=== PATIENT | female | born 1945 | race African-American/Black ===

== ENCOUNTER 2016-08-25 19:50 | Observation (INO) | payer MEDICARE, MEDICAID ==
[~2016-08-25] VITALS: Ht 165.1 cm; Wt 90.7 kg
[~2016-08-25 19:50] MED LIST: ACET-2178 PO; ASPI-1159 PO; ATOR80TA PO; CLON0.1T PO; DILT240C92 PO; DIVA500T PO; FAMO40TA35 PO; GABA-529 PO; HYDR25TA PO; LACT10SO6 PO; MILK OF MAGNESIUM PO; OXYB5TAB11 PO; PHEN100C4 PO; TRAM50TA3 PO; senna PO
[2016-08-25] MEDS ORDERED: SODIUM CHLORIDE 0.9% 1000ML BAG (SEPSIS BOLUS) IV ONE (21:30)
[2016-08-25 22:02] LABS: BASOPHILS % 0.7 % (0.0-2.0); EOSINOPHILS % 0.4 % (0.0-5.0); HEMATOCRIT. 30.8 % (36.0-48.0); HEMOGLOBIN. 10.2 g/dL (12.0-16.0); LYMPHOCYTES % 8.4 % (20.0-50.0); MEAN CORPUSCULAR VOLUME 87.2 fL (81.0-99.0); MEAN PLATELET VOLUME 7.8 fl (7.4-10.4); MONOCYTES % 7.7 % (2.0-8.0); NEUTROPHILS % 82.8 % (40.0-76.0); PLATELET 239 x1000/uL (130-400); RED BLOOD CELL COUNT 3.54 mill/uL (4.2-5.4); RED CELL DISTRIBUTION WIDTH 15.1 % (11.6-14.6)
[2016-08-25 22:05] LABS: PROTHROMBIN TIME 10.5 sec
[2016-08-25 22:16] LABS: CARBON DIOXIDE 30 mEq/L (21-32); CHLORIDE 99 mEq/L (98-107)
[2016-08-25 22:17] LABS: TROPONIN I < 0.02 ng/mL (0.00-0.04)
[2016-08-25 23:10] LABS: CLARITY URINE CLEAR (CLEAR); COLOR URINE DARK YELLOW (YELLOW); GLUCOSE URINE NEGATIVE (NEGATIVE); KETONES URINE 1+ (NEGATIVE); LEUKOCYTE ESTERASE URINE 1+ (NEGATIVE); NITRITE URINE NEGATIVE (NEGATIVE); OCCULT BLOOD URINE NEGATIVE (NEGATIVE); PROTEIN URINE NEGATIVE (NEGATIVE)
[2016-08-25] MEDS ORDERED: CEFTRIAXONE 1 G PREMIX 50 ML IV ONE (23:30)
[2016-08-26 04:00] VITALS: BP 140/76
[2016-08-26] MEDS ORDERED: CLONIDINE 0.1MG TABLET PO PRN (04:45)
[2016-08-26] MEDS ORDERED: ACETAMINOPHEN 325MG TABLET PO PRN (04:45)
[2016-08-26] MEDS ORDERED: TRAMADOL 50MG TABLET PO PRN (05:15)
[2016-08-26] MEDS ORDERED: ALBUTEROL (0.5%) 2.5MG/0.5ML NEB HHN ONE (05:15)
[2016-08-26] MEDS ORDERED: MAGNESIUM HYDROXIDE 400MG/5ML 30ML UDC PO PRN (05:15)
[2016-08-26] MEDS ORDERED: HYDROCODONE/ACETAMINOPHEN 5/325MG TABLET PO PRN (05:15)
[2016-08-26 05:19] VITALS: BP 140/76
[2016-08-26] MEDS: CEFTRIAXONE 1 G PREMIX 50 ML IV SCH (06:35)
[2016-08-26] MEDS: FAMOTIDINE 20MG TABLET PO SCH ×2 (06:36→17:56)
[2016-08-26] MEDS: PHENYTOIN SODIUM EXTENDED 100MG CAPSULE PO SCH ×2 (06:36→20:30)
[2016-08-26 08:00] VITALS: BP 117/64
[2016-08-26] MEDS ORDERED: PHENYTOIN SODIUM EXTENDED 100MG CAPSULE PO SCH (09:00)
[2016-08-26] MEDS: CLOPIDOGREL 75MG TABLET PO SCH (09:18)
[2016-08-26] MEDS: DIVALPROEX SODIUM 250MG DR TABLET PO SCH ×2 (09:18→17:56)
[2016-08-26] MEDS: LEVETIRACETAM 500MG/5ML CUP PO SCH ×2 (09:19→20:29)
[2016-08-26] MEDS: DILTIAZEM HCL 240MG ER (24HR) PO SCH ×2 (09:19→09:34)
[2016-08-26] MEDS: ASPIRIN 81MG EC TABLET PO SCH (09:19)
[2016-08-26] MEDS: GABAPENTIN 100MG CAPSULE PO SCH ×3 (09:19→17:56)
[2016-08-26] MEDS: ENOXAPARIN 40MG/0.4ML SYR SUBCUT SCH (09:20)
[2016-08-26] MEDS: LACTULOSE 20G/30ML UDC PO SCH ×2 (09:20→17:56)
[2016-08-26] MEDS: METOPROLOL TARTRATE 25MG TABLET PO SCH ×2 (09:34→20:31)
[2016-08-26] MEDS: HYDROCHLOROTHIAZIDE 25MG TABLET PO SCH (09:34)
[2016-08-26] MEDS: FLUOXETINE HCL 20MG CAPSULE PO SCH (09:35)
[2016-08-26 12:00] VITALS: BP 138/62
[2016-08-26] MEDS: OXYBUTYNIN CHLORIDE 5MG TABLET PO SCH (15:57)
[2016-08-26 16:00] VITALS: BP 104/68
[2016-08-26 20:00] VITALS: BP 117/60
[2016-08-26] MEDS: BUSPIRONE HCL 10MG TABLET PO SCH (20:31)
[2016-08-26] MEDS: ATORVASTATIN CALCIUM 40MG TABLET PO SCH (20:31)
[2016-08-26 22:12] LABS: VITAMIN B12 SERUM 484 pg/mL (211-911)
[2016-08-27] VITALS (8 sets, daily range): BP systolic 108–151; BP diastolic 61–87
[2016-08-27] MEDS: CEFTRIAXONE 1 G PREMIX 50 ML IV SCH (06:01)
[2016-08-27] MEDS: PHENYTOIN SODIUM EXTENDED 100MG CAPSULE PO SCH ×2 (06:01→20:25)
[2016-08-27] MEDS: FAMOTIDINE 20MG TABLET PO SCH ×2 (06:01→18:12)
[2016-08-27] MEDS: DIVALPROEX SODIUM 250MG DR TABLET PO SCH ×2 (08:47→18:11)
[2016-08-27] MEDS: FLUOXETINE HCL 20MG CAPSULE PO SCH (08:47)
[2016-08-27] MEDS: CLOPIDOGREL 75MG TABLET PO SCH (08:48)
[2016-08-27] MEDS: ASPIRIN 81MG EC TABLET PO SCH (08:48)
[2016-08-27] MEDS: METOPROLOL TARTRATE 25MG TABLET PO SCH ×2 (08:48→20:24)
[2016-08-27] MEDS: OXYBUTYNIN CHLORIDE 5MG TABLET PO SCH (08:48)
[2016-08-27] MEDS: HYDROCHLOROTHIAZIDE 25MG TABLET PO SCH (08:48)
[2016-08-27] MEDS: GABAPENTIN 100MG CAPSULE PO SCH ×3 (08:48→18:12)
[2016-08-27] MEDS: LACTULOSE 20G/30ML UDC PO SCH ×2 (08:48→17:00)
[2016-08-27] MEDS: ENOXAPARIN 40MG/0.4ML SYR SUBCUT SCH (08:49)
[2016-08-27] MEDS: LEVETIRACETAM 500MG/5ML CUP PO SCH ×2 (08:49→20:24)
[2016-08-27 11:15] LABS: BASOPHILS % 0.4 % (0.0-2.0); EOSINOPHILS % 1.9 % (0.0-5.0); HEMOGLOBIN. 10.3 g/dL (12.0-16.0); LYMPHOCYTES % 19.4 % (20.0-50.0); MEAN CORPUSCULAR HEMOGLOBIN 29.8 pg (28.0-32.0); MEAN CORPUSCULAR VOLUME 86.9 fL (81.0-99.0); MEAN PLATELET VOLUME 7.8 fl (7.4-10.4); MONOCYTES % 11.2 % (2.0-8.0); NEUTROPHILS % 67.1 % (40.0-76.0); PLATELET 229 x1000/uL (130-400); RED BLOOD CELL COUNT 3.45 mill/uL (4.2-5.4); RED CELL DISTRIBUTION WIDTH 15.1 % (11.6-14.6)
[2016-08-27 11:18] LABS: CARBON DIOXIDE 30 mEq/L (21-32); CHLORIDE 103 mEq/L (98-107)
[2016-08-27] MEDS ORDERED: CEPHALEXIN 500MG CAPSULE PO SCH (18:00)
[2016-08-27] MEDS: ATORVASTATIN CALCIUM 40MG TABLET PO SCH (20:24)
[2016-08-27] MEDS: BUSPIRONE HCL 10MG TABLET PO SCH (20:24)
== END 2016-08-27 23:12 | disposition home or self-care (01) ==
LOC: ER 19:51 → 5WST 08-26 00:22 → UNDOADMOB 08-26 00:22 → INTOOBSV 08-26 00:22 → 5WST 08-26 00:22 → EDBEDREQ 08-26 00:25 → EDBEDREQSVC 08-26 00:25 → EDBEDREQTM 08-26 00:25 → ENRESERV 08-26 02:05 → ER 08-26 03:30 → UNDODISOB 08-27 22:12 → ER 08-27 22:13
PROVIDERS: ADMIT Internal Medicine; ATTEND Internal Medicine
DX: M25.551 Pain in right hip (principal); N39.0 Urinary tract infection, site not specified; F20.9 Schizophrenia, unspecified; G40.909 Epilepsy, unspecified, not intractable, without status epilepticus; I10 Essential (primary) hypertension; F03.90 Unspecified dementia, unspecified severity, without behavioral disturbance, psychotic disturbance, mood disturbance, and anxiety; R62.7 Adult failure to thrive; M47.9 Spondylosis, unspecified; F32.9 Major depressive disorder, single episode, unspecified; R56.9 Unspecified convulsions; K59.00 Constipation, unspecified; Z86.73 Personal history of transient ischemic attack (TIA), and cerebral infarction without residual deficits; Z93.3 Colostomy status; Z68.33 Body mass index [BMI] 33.0-33.9, adult; Z96.659 Presence of unspecified artificial knee joint
CPT/HCPCS: 36415; 51702; 70450; 71010; 72170; 72192; 73700; 80048; 80053; 80165; 81001; 82607; 83605; 83690; 84443; 84484; 85025; 85610; 87040; 87077; 87086; 93005; 95819; 96361; 96365; 96372; 96375; 96376; 97163; 99285; G0378; J0696; J1650; J7030; A4315

== ENCOUNTER 2017-01-26 17:59 | Emergency (ER) | payer MEDICARE, MEDICAID ==
[~2017-01-26] VITALS: Ht 165.1 cm; Wt 80.0 kg
[~2017-01-26 17:59] MED LIST changes: -FAMO40TA35 PO; +FAMO40TA70 PO
[2017-01-26] MEDS ORDERED: SODIUM CHLORIDE 0.9% 500 ML IV ONE (19:05)
[2017-01-26 20:42] LABS: BASOPHILS % 0.9 % (0.0-2.0); HEMATOCRIT. 36.2 % (36.0-48.0); HEMOGLOBIN. 11.7 g/dL (12.0-16.0); LYMPHOCYTES % 32.2 % (20.0-50.0); MEAN CORPUSCULAR HEMOGLOBIN 28.4 pg (28.0-32.0); MEAN CORPUSCULAR VOLUME 87.6 fL (81.0-99.0); MEAN PLATELET VOLUME 7.7 fl (7.4-10.4); MONOCYTES % 12.7 % (2.0-8.0); NEUTROPHILS % 51.2 % (40.0-76.0); PLATELET 157 x1000/uL (130-400); RED BLOOD CELL COUNT 4.14 mill/uL (4.2-5.4); RED CELL DISTRIBUTION WIDTH 18.8 % (11.6-14.6)
[2017-01-26 20:43] LABS: CHLORIDE 99 mEq/L (98-107)
[2017-01-26 20:45] LABS: PROTHROMBIN TIME 10.2 sec (9.4-11.6)
[2017-01-26 20:49] LABS: AMMONIA 39 uMol/L (<32)
[2017-01-26 20:50] LABS: CARBON DIOXIDE 34 mEq/L (21-32)
[2017-01-26 20:51] LABS: CREATINE KINASE 283 IU/L (26-192)
[2017-01-26 20:55] LABS: TROPONIN I < 0.02 ng/mL (0.00-0.04)
[2017-01-27 00:24] VITALS: BP 134/65
== END 2017-01-27 00:27 ==
LOC: ER 17:59
DX: R41.82 Altered mental status, unspecified (principal); R53.1 Weakness; F03.90 Unspecified dementia, unspecified severity, without behavioral disturbance, psychotic disturbance, mood disturbance, and anxiety; F20.9 Schizophrenia, unspecified; F32.9 Major depressive disorder, single episode, unspecified; I10 Essential (primary) hypertension; R56.9 Unspecified convulsions; Z79.82 Long term (current) use of aspirin; Z86.73 Personal history of transient ischemic attack (TIA), and cerebral infarction without residual deficits; Z93.3 Colostomy status; Z87.440 Personal history of urinary (tract) infections; Z88.8 Allergy status to other drugs, medicaments and biological substances
CPT/HCPCS: 36415; 70450; 71010; 80053; 80165; 82140; 82550; 83605; 83880; 84443; 84484; 85025; 85610; 87040; 93005; 96360; 96361; 99285; J7030; J7040

== ENCOUNTER 2017-06-20 20:05 | Inpatient (IN) | payer MEDICARE, MEDICAID ==
[~2017-06-20] VITALS: Ht 160 cm; Wt 113.9 kg
[2017-06-20] MEDS ORDERED: MORPHINE SULFATE 4 MG/ML CPJ (NOT FOR IM USE) IV ONE (20:45)
[2017-06-20] MEDS ORDERED: FUROSEMIDE 100MG/10ML VIAL IVP ONE (20:45)
[2017-06-20 21:30] LABS: CHLORIDE 101 mEq/L (98-107)
[2017-06-20 21:33] LABS: BASOPHILS % 0.7 % (0.0-2.0); EOSINOPHILS % 2.3 % (0.0-5.0); HEMATOCRIT. 39.5 % (36.0-48.0); HEMOGLOBIN. 13.3 g/dL (12.0-16.0); LYMPHOCYTES % 47.7 % (20.0-50.0); MEAN CORPUSCULAR HEMOGLOBIN 30.8 pg (28.0-32.0); MEAN CORPUSCULAR VOLUME 91.4 fL (81.0-99.0); MEAN PLATELET VOLUME 7.9 fl (7.4-10.4); MONOCYTES % 9.1 % (2.0-8.0); NEUTROPHILS % 40.2 % (40.0-76.0); PLATELET 172 x1000/uL (130-400); RED BLOOD CELL COUNT 4.32 mill/uL (4.2-5.4); RED CELL DISTRIBUTION WIDTH 14.9 % (11.6-14.6)
[2017-06-21 06:15] VITALS: BP 131/67
[2017-06-21 07:30] VITALS: BP 178/74
[2017-06-21 08:00] VITALS: BP 178/74
[2017-06-21] MEDS ORDERED: CLONIDINE 0.1MG TABLET PO SCH (09:30)
[2017-06-21] MEDS ORDERED: ONDANSETRON HCL 4MG/2ML VIAL IV PRN (11:30)
[2017-06-21] MEDS ORDERED: HYDROCODONE/ACETAMINOPHEN 5/325MG TABLET PO PRN (11:30)
[2017-06-21] MEDS ORDERED: CLONIDINE 0.1MG TABLET PO PRN (11:45)
[2017-06-21] MEDS ORDERED: LACTULOSE 20G/30ML UDC PO PRN (11:45)
[2017-06-21 12:00] VITALS: BP 157/46
[2017-06-21 13:20] LABS: HEMATOCRIT 38.6 % (36.0-48.0); HEMOGLOBIN 13.2 g/dL (12.0-16.0); MEAN CORPUSCULAR HEMOGLOBIN 31.1 pg (28.0-32.0); MEAN CORPUSCULAR VOLUME 91.3 fL (81.0-99.0); PLATELET 164 x1000/uL (130-400); RED BLOOD CELL COUNT 4.23 mill/uL (4.2-5.4); RED CELL DISTRIBUTION WIDTH 14.9 % (11.6-14.6)
[2017-06-21] MEDS: OXYBUTYNIN CHLORIDE 5MG TABLET PO SCH (13:23)
[2017-06-21] MEDS: GABAPENTIN 100MG CAPSULE PO SCH ×2 (13:24→17:03)
[2017-06-21 13:27] LABS: CHLORIDE 103 mEq/L (98-107)
[2017-06-21] MEDS: DILTIAZEM HCL 240MG ER (24HR) PO SCH (13:29)
[2017-06-21] MEDS: HYDROCHLOROTHIAZIDE 25MG TABLET PO SCH (13:29)
[2017-06-21 13:36] LABS: CREATINE KINASE 132 IU/L (26-192)
[2017-06-21 13:38] LABS: CREATINE KINASE MB FRACTION 1.9 ng/mL (0.5-3.6)
[2017-06-21] MEDS: FUROSEMIDE 40MG/4ML VIAL IVP SCH (15:38)
[2017-06-21] MEDS: ENOXAPARIN 30MG/0.3ML SYR SUBCUT SCH ×2 (15:44→22:39)
[2017-06-21 16:00] VITALS: BP 134/86
[2017-06-21] MEDS ORDERED: PHENYTOIN SODIUM EXTENDED 100MG CAPSULE PO SCH (17:00)
[2017-06-21] MEDS: DIVALPROEX SODIUM 250MG DR TABLET PO SCH (17:03)
[2017-06-21] MEDS: HALOPERIDOL 1MG TABLET PO PRN (17:03)
[2017-06-21] MEDS: FAMOTIDINE 20MG TABLET PO SCH (17:04)
[2017-06-21 20:00] VITALS: BP 99/71
[2017-06-21] MEDS ORDERED: MEDICATION NOT ON FORMULARY EA (Atorvastatin Calcium (Lipitor) 80 MG) PO SCH (21:00)
[2017-06-21] MEDS: GABAPENTIN 300MG CAPSULE PO SCH (22:38)
[2017-06-21] MEDS: PHENYTOIN SODIUM EXTENDED 100MG CAPSULE PO SCH (22:38)
[2017-06-21] MEDS: ATORVASTATIN CALCIUM 40MG TABLET PO SCH (22:38)
[2017-06-22] VITALS: BP 121/61
[2017-06-22 04:00] VITALS: BP 127/68
[2017-06-22] MEDS: HALOPERIDOL 1MG TABLET PO PRN (05:41)
[2017-06-22] MEDS: FAMOTIDINE 20MG TABLET PO SCH ×2 (06:57→18:04)
[2017-06-22 07:30] LABS: HEMATOCRIT 38.1 % (36.0-48.0); HEMOGLOBIN 12.7 g/dL (12.0-16.0); MEAN CORPUSCULAR HEMOGLOBIN 30.3 pg (28.0-32.0); MEAN CORPUSCULAR VOLUME 91.4 fL (81.0-99.0); PLATELET 168 x1000/uL (130-400); RED BLOOD CELL COUNT 4.17 mill/uL (4.2-5.4)
[2017-06-22 08:00] VITALS: BP 151/64
[2017-06-22 08:14] LABS: CHLORIDE 103 mEq/L (98-107)
[2017-06-22 08:30] LABS: LDL CHOLESTEROL 174 mg/dL (5-100)
[2017-06-22 08:31] LABS: HDL CHOLESTEROL 57 mg/dL (40-59)
[2017-06-22] MEDS: PHENYTOIN SODIUM EXTENDED 100MG CAPSULE PO SCH ×2 (10:18→18:04)
[2017-06-22] MEDS: DIVALPROEX SODIUM 250MG DR TABLET PO SCH ×2 (10:18→18:04)
[2017-06-22] MEDS: ASPIRIN 81MG EC TABLET PO SCH (10:18)
[2017-06-22] MEDS: GABAPENTIN 300MG CAPSULE PO SCH ×3 (10:18→18:05)
[2017-06-22] MEDS: DILTIAZEM HCL 240MG ER (24HR) PO SCH (10:19)
[2017-06-22] MEDS: OXYBUTYNIN CHLORIDE 5MG TABLET PO SCH (10:20)
[2017-06-22] MEDS: HYDROCHLOROTHIAZIDE 25MG TABLET PO SCH (10:20)
[2017-06-22] MEDS: ENOXAPARIN 30MG/0.3ML SYR SUBCUT SCH ×2 (10:21→21:05)
[2017-06-22 12:00] VITALS: BP 126/51
[2017-06-22] MEDS: FUROSEMIDE 40MG/4ML VIAL IVP SCH (15:00)
[2017-06-22] MEDS ORDERED: PHEN200C5 MT (15:48)
[2017-06-22] MEDS ORDERED: HALO2TAB MT (15:51)
[2017-06-22] MEDS ORDERED: GABA-531 MT (15:51)
[2017-06-22 16:00] VITALS: BP 149/73
[2017-06-22 20:00] VITALS: BP 118/66
[2017-06-22] MEDS ORDERED: HALOPERIDOL 1MG TABLET PO SCH (21:00)
[2017-06-22] MEDS: ATORVASTATIN CALCIUM 40MG TABLET PO SCH (21:03)
[2017-06-22] MEDS: HALOPERIDOL 1MG TABLET PO SCH (21:04)
[2017-06-23] VITALS: BP 112/56
[2017-06-23 04:00] VITALS: BP 133/73
[2017-06-23] MEDS: FAMOTIDINE 20MG TABLET PO SCH ×2 (06:52→18:45)
[2017-06-23 08:00] VITALS: BP 123/67
[2017-06-23] MEDS: ASPIRIN 81MG EC TABLET PO SCH (09:28)
[2017-06-23] MEDS: PHENYTOIN SODIUM EXTENDED 100MG CAPSULE PO SCH ×2 (09:28→18:45)
[2017-06-23] MEDS: HYDROCHLOROTHIAZIDE 25MG TABLET PO SCH (09:28)
[2017-06-23] MEDS: HALOPERIDOL 1MG TABLET PO SCH ×2 (09:28→20:32)
[2017-06-23] MEDS: GABAPENTIN 300MG CAPSULE PO SCH ×3 (09:29→18:45)
[2017-06-23] MEDS: FUROSEMIDE 40MG/4ML VIAL IVP SCH (09:29)
[2017-06-23] MEDS: DIVALPROEX SODIUM 250MG DR TABLET PO SCH ×2 (09:29→18:44)
[2017-06-23] MEDS: OXYBUTYNIN CHLORIDE 5MG TABLET PO SCH (09:29)
[2017-06-23] MEDS: DILTIAZEM HCL 240MG ER (24HR) PO SCH (09:29)
[2017-06-23] MEDS: ENOXAPARIN 30MG/0.3ML SYR SUBCUT SCH ×2 (09:30→20:33)
[2017-06-23 11:17] LABS: CLARITY URINE CLEAR (CLEAR); COLOR URINE YELLOW (YELLOW); KETONES URINE NEGATIVE (NEGATIVE); LEUKOCYTE ESTERASE URINE NEGATIVE (NEGATIVE); NITRITE URINE NEGATIVE (NEGATIVE); OCCULT BLOOD URINE NEGATIVE (NEGATIVE); PROTEIN URINE NEGATIVE (NEGATIVE); SPECIFIC GRAVITY URINE 1.015 (1.005-1.030); UROBILINOGEN URINE 0.2 E.U./dL (0.2-1.0)
[2017-06-23 12:00] VITALS: BP 143/88
[2017-06-23 16:00] VITALS: BP 155/77
[2017-06-23 17:09] LABS: HEMATOCRIT 39.7 % (36.0-48.0); HEMOGLOBIN 13.4 g/dL (12.0-16.0); MEAN CORPUSCULAR HEMOGLOBIN 30.7 pg (28.0-32.0); MEAN CORPUSCULAR VOLUME 91.2 fL (81.0-99.0); PLATELET 194 x1000/uL (130-400); RED BLOOD CELL COUNT 4.36 mill/uL (4.2-5.4); RED CELL DISTRIBUTION WIDTH 14.7 % (11.6-14.6)
[2017-06-23 17:17] LABS: CHLORIDE 99 mEq/L (98-107)
[2017-06-23 20:00] VITALS: BP 121/72
[2017-06-23] MEDS: ATORVASTATIN CALCIUM 40MG TABLET PO SCH (20:32)
[2017-06-24] VITALS: BP 130/62
[2017-06-24 04:00] VITALS: BP 123/59
[2017-06-24 06:15] LABS: PROTHROMBIN TIME 10.7 sec (9.4-11.6)
[2017-06-24 06:17] LABS: HEMATOCRIT 39.2 % (36.0-48.0); HEMOGLOBIN 13.2 g/dL (12.0-16.0); MEAN CORPUSCULAR HEMOGLOBIN 30.8 pg (28.0-32.0); MEAN CORPUSCULAR VOLUME 91.3 fL (81.0-99.0); PLATELET 175 x1000/uL (130-400); RED BLOOD CELL COUNT 4.29 mill/uL (4.2-5.4)
[2017-06-24] MEDS: FAMOTIDINE 20MG TABLET PO SCH ×2 (06:20→18:04)
[2017-06-24 07:19] LABS: CHLORIDE 101 mEq/L (98-107)
[2017-06-24 08:00] VITALS: BP 152/69
[2017-06-24] MEDS: DILTIAZEM HCL 240MG ER (24HR) PO SCH (08:58)
[2017-06-24] MEDS: DIVALPROEX SODIUM 250MG DR TABLET PO SCH ×2 (08:59→18:04)
[2017-06-24] MEDS: PHENYTOIN SODIUM EXTENDED 100MG CAPSULE PO SCH ×2 (08:59→18:04)
[2017-06-24] MEDS: FUROSEMIDE 40MG/4ML VIAL IVP SCH (09:00)
[2017-06-24] MEDS: GABAPENTIN 300MG CAPSULE PO SCH ×3 (09:00→18:04)
[2017-06-24] MEDS: ASPIRIN 81MG EC TABLET PO SCH (09:01)
[2017-06-24] MEDS: HYDROCHLOROTHIAZIDE 25MG TABLET PO SCH (09:01)
[2017-06-24] MEDS: HALOPERIDOL 1MG TABLET PO SCH ×2 (09:01→20:00)
[2017-06-24] MEDS: OXYBUTYNIN CHLORIDE 5MG TABLET PO SCH (09:02)
[2017-06-24] MEDS: ENOXAPARIN 30MG/0.3ML SYR SUBCUT SCH ×2 (09:04→20:02)
[2017-06-24 12:00] VITALS: BP 137/70
[2017-06-24] MEDS ORDERED: HALOPERIDOL 2MG TABLET PO NR (15:30)
[2017-06-24 16:00] VITALS: BP 133/71
[2017-06-24 20:00] VITALS: BP 121/67
[2017-06-24] MEDS: ATORVASTATIN CALCIUM 40MG TABLET PO SCH (20:00)
[2017-06-25] VITALS: BP 113/77
[2017-06-25 04:00] VITALS: BP 119/67
[2017-06-25 06:14] LABS: CHLORIDE 98 mEq/L (98-107)
[2017-06-25] MEDS: FAMOTIDINE 20MG TABLET PO SCH ×2 (06:32→16:37)
[2017-06-25 08:00] VITALS: BP 126/55
[2017-06-25] MEDS: PHENYTOIN SODIUM EXTENDED 100MG CAPSULE PO SCH ×2 (09:00→16:37)
[2017-06-25] MEDS: OXYBUTYNIN CHLORIDE 5MG TABLET PO SCH (09:41)
[2017-06-25] MEDS: HALOPERIDOL 1MG TABLET PO SCH ×2 (09:41→22:21)
[2017-06-25] MEDS: ENOXAPARIN 30MG/0.3ML SYR SUBCUT SCH ×2 (09:41→22:21)
[2017-06-25] MEDS: DIVALPROEX SODIUM 250MG DR TABLET PO SCH ×2 (09:41→16:37)
[2017-06-25] MEDS: HYDROCHLOROTHIAZIDE 25MG TABLET PO SCH (09:42)
[2017-06-25] MEDS: ASPIRIN 81MG EC TABLET PO SCH (09:43)
[2017-06-25] MEDS: GABAPENTIN 300MG CAPSULE PO SCH ×3 (09:43→16:37)
[2017-06-25] MEDS: FUROSEMIDE 40MG/4ML VIAL IVP SCH (09:43)
[2017-06-25] MEDS: DILTIAZEM HCL 240MG ER (24HR) PO SCH (09:47)
[2017-06-25 12:00] VITALS: BP 123/70
[2017-06-25 16:00] VITALS: BP 115/60
[2017-06-25] MEDS: ATORVASTATIN CALCIUM 40MG TABLET PO SCH (22:21)
[2017-06-26 04:00] VITALS: BP 100/69
[2017-06-26] MEDS: FAMOTIDINE 20MG TABLET PO SCH ×2 (07:36→16:45)
[2017-06-26 08:00] VITALS: BP 141/69
[2017-06-26] MEDS: ENOXAPARIN 30MG/0.3ML SYR SUBCUT SCH ×2 (09:30→22:41)
[2017-06-26] MEDS: FUROSEMIDE 40MG/4ML VIAL IVP SCH (09:30)
[2017-06-26] MEDS: OXYBUTYNIN CHLORIDE 5MG TABLET PO SCH (09:31)
[2017-06-26] MEDS: ASPIRIN 81MG EC TABLET PO SCH (09:31)
[2017-06-26] MEDS: HALOPERIDOL 1MG TABLET PO SCH ×2 (09:31→22:41)
[2017-06-26] MEDS: HYDROCHLOROTHIAZIDE 25MG TABLET PO SCH (09:31)
[2017-06-26] MEDS: DILTIAZEM HCL 240MG ER (24HR) PO SCH (09:31)
[2017-06-26] MEDS: GABAPENTIN 300MG CAPSULE PO SCH ×3 (09:31→16:45)
[2017-06-26] MEDS: DIVALPROEX SODIUM 250MG DR TABLET PO SCH ×2 (09:31→16:45)
[2017-06-26] MEDS: PHENYTOIN SODIUM EXTENDED 100MG CAPSULE PO SCH ×2 (09:31→16:45)
[2017-06-26 12:03] VITALS: BP 109/73
[2017-06-26 16:18] VITALS: BP 99/55
[2017-06-26 20:00] VITALS: BP 129/75
[2017-06-26] MEDS: ATORVASTATIN CALCIUM 40MG TABLET PO SCH (22:41)
[2017-06-27] VITALS: BP 125/62
[2017-06-27 04:43] VITALS: BP 113/77
[2017-06-27] MEDS: FAMOTIDINE 20MG TABLET PO SCH ×2 (07:27→17:23)
[2017-06-27 08:00] VITALS: BP 147/69
[2017-06-27] MEDS: ENOXAPARIN 30MG/0.3ML SYR SUBCUT SCH (09:24)
[2017-06-27] MEDS: OXYBUTYNIN CHLORIDE 5MG TABLET PO SCH (09:24)
[2017-06-27] MEDS: HYDROCHLOROTHIAZIDE 25MG TABLET PO SCH (09:24)
[2017-06-27] MEDS: DIVALPROEX SODIUM 250MG DR TABLET PO SCH ×2 (09:25→17:51)
[2017-06-27] MEDS: ASPIRIN 81MG EC TABLET PO SCH (09:25)
[2017-06-27] MEDS: HALOPERIDOL 1MG TABLET PO SCH (09:25)
[2017-06-27] MEDS: GABAPENTIN 300MG CAPSULE PO SCH ×3 (09:25→17:23)
[2017-06-27] MEDS: PHENYTOIN SODIUM EXTENDED 100MG CAPSULE PO SCH ×2 (09:26→17:24)
[2017-06-27] MEDS: DILTIAZEM HCL 240MG ER (24HR) PO SCH (09:26)
[2017-06-27] MEDS: FUROSEMIDE 40MG/4ML VIAL IVP SCH (09:26)
[2017-06-27 12:00] VITALS: BP 108/64
[2017-06-27 16:00] VITALS: BP 134/82
== END 2017-06-27 19:15 | disposition home or self-care (01) | DRG 292 ==
LOC: ER 22:08 → 6EST 06-21 00:46 → ENRESERV 06-21 04:01
PROVIDERS: ADMIT Internal Medicine; ATTEND Internal Medicine
DX: I11.0 Hypertensive heart disease with heart failure (principal); Z68.41 Body mass index [BMI] 40.0-44.9, adult; F03.90 Unspecified dementia, unspecified severity, without behavioral disturbance, psychotic disturbance, mood disturbance, and anxiety; G40.909 Epilepsy, unspecified, not intractable, without status epilepticus; E66.01 Morbid (severe) obesity due to excess calories; I50.33 Acute on chronic diastolic (congestive) heart failure; E78.5 Hyperlipidemia, unspecified; R73.9 Hyperglycemia, unspecified; F20.9 Schizophrenia, unspecified; F31.9 Bipolar disorder, unspecified; G89.29 Other chronic pain; I87.2 Venous insufficiency (chronic) (peripheral); Z96.659 Presence of unspecified artificial knee joint; Z88.1 Allergy status to other antibiotic agents; Z93.3 Colostomy status; Z79.1 Long term (current) use of non-steroidal anti-inflammatories (NSAID); Z79.899 Other long term (current) drug therapy
CPT/HCPCS: 36415; 71045; 80048; 80061; 80165; 80185; 81003; 82550; 82553; 83036; 83880; 84443; 84484; 85025; 85027; 85610; 93306; 93970; 96374; 96375; 97116; 97162; 97530; 99285; C1893; J1650; J1940; J2270; J2405

== ENCOUNTER 2017-07-15 18:35 | Emergency (ER) | payer MEDICARE, MEDICAID ==
[~2017-07-15] VITALS: Ht 160 cm; Wt 119.0 kg
[~2017-07-15 18:35] MED LIST changes: -GABA-529 PO; +GABA-531 MT; +HALO2TAB MT; -PHEN100C4 PO; +PHEN200C5 MT
[2017-07-15] MEDS ORDERED: MORPHINE SULFATE 4 MG/ML CPJ (NOT FOR IM USE) IV STA (20:22)
[2017-07-15] MEDS ORDERED: ONDANSETRON HCL 4MG/2ML VIAL IV STA (20:22)
[2017-07-15] MEDS ORDERED: SODIUM CHLORIDE 0.9% 1,000 ML IV ONE (20:22)
[2017-07-15] MEDS ORDERED: FAMOTIDINE 20MG/2ML VIAL IV STA (20:22)
[2017-07-15 21:38] LABS: CHLORIDE 103 mEq/L (98-107)
[2017-07-15 21:39] LABS: PROTHROMBIN TIME 10.2 sec (9.4-11.6)
[2017-07-15 21:42] LABS: ETHANOL BLOOD < 10 mg/dL
[2017-07-15 21:44] LABS: BASOPHILS % 0.4 % (0.0-2.0); EOSINOPHILS % 4.6 % (0.0-5.0); HEMATOCRIT. 41.1 % (36.0-48.0); HEMOGLOBIN. 13.9 g/dL (12.0-16.0); LYMPHOCYTES % 36.5 % (20.0-50.0); MEAN CORPUSCULAR HEMOGLOBIN 31.3 pg (28.0-32.0); MEAN CORPUSCULAR VOLUME 92.1 fL (81.0-99.0); MEAN PLATELET VOLUME 7.6 fl (7.4-10.4); MONOCYTES % 8.7 % (2.0-8.0); NEUTROPHILS % 49.8 % (40.0-76.0); PLATELET 193 x1000/uL (130-400); RED BLOOD CELL COUNT 4.46 mill/uL (4.2-5.4); RED CELL DISTRIBUTION WIDTH 14.9 % (11.6-14.6)
[2017-07-15] MEDS ORDERED: MAGNESIUM CITRATE 300ML SOLUTION PO NR (22:45)
[2017-07-15 22:54] VITALS: BP 137/71
== END 2017-07-15 23:18 | disposition home or self-care (01) ==
LOC: ER 19:50
DX: K59.00 Constipation, unspecified (principal); I10 Essential (primary) hypertension; F20.9 Schizophrenia, unspecified; I87.2 Venous insufficiency (chronic) (peripheral); Z79.82 Long term (current) use of aspirin; Z93.3 Colostomy status; Z96.659 Presence of unspecified artificial knee joint; Z88.8 Allergy status to other drugs, medicaments and biological substances
CPT/HCPCS: 36415; 71045; 74176; 80053; 80185; 83605; 83690; 83880; 84484; 85025; 85610; 87040; 93005; 99285; G0482; J7030

== ENCOUNTER 2017-07-30 16:23 | Inpatient (IN) | payer MEDICARE, MEDICAID ==
[~2017-07-30] VITALS: Ht 160 cm; Wt 115.7 kg
[2017-07-30] MEDS ORDERED: MORPHINE SULFATE 4 MG/ML CPJ (NOT FOR IM USE) IV STA (18:19)
[2017-07-30 19:26] LABS: BASOPHILS % 0.5 % (0.0-2.0); EOSINOPHILS % 2.2 % (0.0-5.0); HEMATOCRIT. 39.3 % (36.0-48.0); LYMPHOCYTES % 25.8 % (20.0-50.0); MEAN CORPUSCULAR HEMOGLOBIN 30.5 pg (28.0-32.0); MEAN CORPUSCULAR VOLUME 91.8 fL (81.0-99.0); MEAN PLATELET VOLUME 7.6 fl (7.4-10.4); MONOCYTES % 7.2 % (2.0-8.0); NEUTROPHILS % 64.3 % (40.0-76.0); PLATELET 205 x1000/uL (130-400); RED BLOOD CELL COUNT 4.28 mill/uL (4.2-5.4)
[2017-07-30 19:30] LABS: INR 1.1
[2017-07-30 19:32] LABS: CHLORIDE 104 mEq/L (98-107)
[2017-07-30 19:38] LABS: AMMONIA 57 uMol/L (<32)
[2017-07-30 19:39] LABS: ETHANOL BLOOD < 10 mg/dL
[2017-07-30 19:59] LABS: CLARITY URINE CLEAR (CLEAR); COLOR URINE YELLOW (YELLOW); KETONES URINE NEGATIVE (NEGATIVE); LEUKOCYTE ESTERASE URINE NEGATIVE (NEGATIVE); NITRITE URINE NEGATIVE (NEGATIVE); OCCULT BLOOD URINE NEGATIVE (NEGATIVE); PH URINE 6.5 (4.5-8.0); PROTEIN URINE NEGATIVE (NEGATIVE); SPECIFIC GRAVITY URINE 1.018 (1.005-1.030); UROBILINOGEN URINE 0.2 E.U./dL (0.2-1.0)
[2017-07-30 20:26] LABS: *AMPHETAMINES SCREEN URINE NEGATIVE (NEGATIVE); *BARBITURATES SCREEN URINE NEGATIVE (NEGATIVE); *BENZODIAZEPINES SCREEN URINE NEGATIVE (NEGATIVE); *COCAINE SCREEN URINE NEGATIVE (NEGATIVE)
[2017-07-30 20:27] LABS: CANNABINOID URINE SCREEN NEGATIVE (NEGATIVE); METHADONE URINE SCREEN NEGATIVE (NEGATIVE); OPIATES URINE SCREEN NEGATIVE (NEGATIVE); PHENCYCLIDINE URINE SCREEN NEGATIVE (NEGATIVE)
[2017-07-31 03:24] VITALS: BP 140/74
[2017-07-31 04:11] VITALS: BP 141/98
[2017-07-31] MEDS ORDERED: LACTULOSE 20G/30ML UDC PO PRN (06:30)
[2017-07-31] MEDS ORDERED: ACETAMINOPHEN 325MG TABLET PO PRN (06:30)
[2017-07-31] MEDS ORDERED: HALOPERIDOL 2MG TABLET PO PRN (06:30)
[2017-07-31] MEDS ORDERED: MAGNESIUM HYDROXIDE 400MG/5ML 30ML UDC PO PRN (06:30)
[2017-07-31] MEDS ORDERED: CLONIDINE 0.1MG TABLET PO PRN (06:30)
[2017-07-31] MEDS ORDERED: DEXT 5%/0.45% NACL 500ML 500 ML IV SCH (06:30)
[2017-07-31] MEDS ORDERED: MILK OF MAGNESIUM PO SCH (07:00)
[2017-07-31] MEDS ORDERED: CLONIDINE 0.1MG TABLET PO SCH (07:00)
[2017-07-31] MEDS ORDERED: ACETAMINOPHEN 325MG TABLET PO SCH (07:00)
[2017-07-31] MEDS ORDERED: TRAMADOL 50MG TABLET PO PRN (07:00)
[2017-07-31] MEDS ORDERED: DEXT 5%/0.45% NACL 1000ML 1,000 ML IV SCH (08:45)
[2017-07-31] MEDS: ASPIRIN 81MG TABLET PO SCH (08:48)
[2017-07-31] MEDS: FAMOTIDINE 20MG TABLET PO SCH ×2 (08:48→16:36)
[2017-07-31 08:51] VITALS: BP 152/62
[2017-07-31] MEDS: DILTIAZEM HCL 240MG ER (24HR) PO SCH (08:51)
[2017-07-31] MEDS: GABAPENTIN 300MG CAPSULE PO SCH ×3 (08:52→22:47)
[2017-07-31] MEDS: HYDROCHLOROTHIAZIDE 25MG TABLET PO SCH (08:52)
[2017-07-31] MEDS: OXYBUTYNIN CHLORIDE 5MG TABLET PO SCH (08:52)
[2017-07-31] MEDS: DIVALPROEX SODIUM 250MG DR TABLET PO SCH ×2 (08:58→16:36)
[2017-07-31] MEDS ORDERED: ASPIRIN 81MG EC TABLET PO SCH (09:00)
[2017-07-31] MEDS ORDERED: HALOPERIDOL 2MG TABLET PO SCH (09:00)
[2017-07-31] MEDS ORDERED: FAMOTIDINE 20MG TABLET PO SCH (09:00)
[2017-07-31] MEDS ORDERED: PHENYTOIN SODIUM MT SCH (09:00)
[2017-07-31] MEDS ORDERED: SENNA 8.6 MG PO SCH (09:00)
[2017-07-31] MEDS ORDERED: DIVALPROEX SODIUM 500MG DR TABLET PO SCH (09:00)
[2017-07-31] MEDS ORDERED: GABAPENTIN 300MG CAPSULE PO SCH (09:00)
[2017-07-31] MEDS ORDERED: DIVALPROEX SODIUM 500MG ER TABLET PO SCH (09:00)
[2017-07-31] MEDS: LACTULOSE 20G/30ML UDC PO SCH ×2 (09:36→16:36)
[2017-07-31] MEDS: SENNOSIDES 8.6MG TABLET PO SCH ×2 (09:36→16:36)
[2017-07-31] MEDS ORDERED: ONDANSETRON HCL 4MG/2ML VIAL IV PRN (10:15)
[2017-07-31 12:48] VITALS: BP 158/86
[2017-07-31] MEDS: PHENYTOIN SODIUM EXTENDED 100MG CAPSULE PO SCH (16:36)
[2017-07-31 16:43] VITALS: BP 130/55
[2017-07-31 19:19] LABS: HEMATOCRIT 37.6 % (36.0-48.0); HEMOGLOBIN 12.5 g/dL (12.0-16.0); MEAN CORPUSCULAR HEMOGLOBIN 30.1 pg (28.0-32.0); MEAN CORPUSCULAR VOLUME 90.9 fL (81.0-99.0); PLATELET 205 x1000/uL (130-400); RED BLOOD CELL COUNT 4.14 mill/uL (4.2-5.4); RED CELL DISTRIBUTION WIDTH 14.7 % (11.6-14.6)
[2017-07-31 19:29] LABS: CHLORIDE 103 mEq/L (98-107)
[2017-07-31 19:33] LABS: AMMONIA 48 uMol/L (<32)
[2017-07-31 20:00] VITALS: BP 130/66
[2017-07-31] MEDS ORDERED: MEDICATION NOT ON FORMULARY EA (Atorvastatin Calcium (Lipitor) 80 MG) PO SCH (21:00)
[2017-07-31] MEDS: ATORVASTATIN CALCIUM 40MG TABLET PO SCH (22:47)
[2017-08-01] VITALS (7 sets, daily range): BP systolic 99–146; BP diastolic 53–77
[2017-08-01] MEDS: GABAPENTIN 300MG CAPSULE PO SCH ×3 (07:04→20:50)
[2017-08-01] MEDS: FAMOTIDINE 20MG TABLET PO SCH ×2 (07:04→17:32)
[2017-08-01 07:37] LABS: HEMATOCRIT 37.6 % (36.0-48.0); HEMOGLOBIN 12.8 g/dL (12.0-16.0); MEAN CORPUSCULAR HEMOGLOBIN 31.1 pg (28.0-32.0); MEAN CORPUSCULAR VOLUME 91.5 fL (81.0-99.0); PLATELET 190 x1000/uL (130-400); RED BLOOD CELL COUNT 4.11 mill/uL (4.2-5.4); RED CELL DISTRIBUTION WIDTH 14.8 % (11.6-14.6)
[2017-08-01 07:45] LABS: CHLORIDE 104 mEq/L (98-107)
[2017-08-01] MEDS: PHENYTOIN SODIUM EXTENDED 100MG CAPSULE PO SCH ×2 (08:03→17:32)
[2017-08-01] MEDS: SENNOSIDES 8.6MG TABLET PO SCH ×2 (08:04→17:32)
[2017-08-01] MEDS: OXYBUTYNIN CHLORIDE 5MG TABLET PO SCH (08:04)
[2017-08-01] MEDS: HYDROCHLOROTHIAZIDE 25MG TABLET PO SCH (08:04)
[2017-08-01] MEDS: DIVALPROEX SODIUM 250MG DR TABLET PO SCH ×2 (08:04→17:32)
[2017-08-01] MEDS: LACTULOSE 20G/30ML UDC PO SCH ×2 (08:04→17:32)
[2017-08-01] MEDS: DILTIAZEM HCL 240MG ER (24HR) PO SCH (08:04)
[2017-08-01] MEDS: ASPIRIN 81MG TABLET PO SCH (08:04)
[2017-08-01] MEDS: ATORVASTATIN CALCIUM 40MG TABLET PO SCH (20:50)
[2017-08-02] VITALS: BP 125/60
[2017-08-02] MEDS ORDERED: HALOPERIDOL LACTATE 5MG/ML VIAL IM SCH (01:10)
[2017-08-02 04:00] VITALS: BP 132/63
[2017-08-02] MEDS: FAMOTIDINE 20MG TABLET PO SCH ×2 (06:22→19:23)
[2017-08-02] MEDS: GABAPENTIN 300MG CAPSULE PO SCH ×3 (06:22→21:27)
[2017-08-02 06:53] LABS: BASOPHILS % 0.5 % (0.0-2.0); EOSINOPHILS % 2.6 % (0.0-5.0); HEMATOCRIT. 37.5 % (36.0-48.0); HEMOGLOBIN. 12.8 g/dL (12.0-16.0); MEAN CORPUSCULAR HEMOGLOBIN 31.2 pg (28.0-32.0); MEAN CORPUSCULAR VOLUME 91.1 fL (81.0-99.0); MEAN PLATELET VOLUME 7.7 fl (7.4-10.4); MONOCYTES % 10.4 % (2.0-8.0); NEUTROPHILS % 45.5 % (40.0-76.0); PLATELET 183 x1000/uL (130-400); RED BLOOD CELL COUNT 4.12 mill/uL (4.2-5.4); RED CELL DISTRIBUTION WIDTH 14.9 % (11.6-14.6)
[2017-08-02 08:00] VITALS: BP 137/98
[2017-08-02 08:05] LABS: CHLORIDE 105 mEq/L (98-107)
[2017-08-02] MEDS: PHENYTOIN SODIUM EXTENDED 100MG CAPSULE PO SCH ×2 (10:06→19:22)
[2017-08-02] MEDS: LACTULOSE 20G/30ML UDC PO SCH ×2 (10:06→19:22)
[2017-08-02] MEDS: DILTIAZEM HCL 240MG ER (24HR) PO SCH (10:07)
[2017-08-02] MEDS: ASPIRIN 81MG TABLET PO SCH (10:07)
[2017-08-02] MEDS: OXYBUTYNIN CHLORIDE 5MG TABLET PO SCH (10:07)
[2017-08-02] MEDS: DIVALPROEX SODIUM 250MG DR TABLET PO SCH ×2 (10:07→19:22)
[2017-08-02] MEDS: HYDROCHLOROTHIAZIDE 25MG TABLET PO SCH (10:07)
[2017-08-02] MEDS: SENNOSIDES 8.6MG TABLET PO SCH ×2 (10:18→19:22)
[2017-08-02 12:00] VITALS: BP 133/66
[2017-08-02 16:00] VITALS: BP 119/53
[2017-08-02 20:12] VITALS: BP 105/75
[2017-08-02] MEDS: ATORVASTATIN CALCIUM 40MG TABLET PO SCH (21:27)
[2017-08-03] VITALS (7 sets, daily range): BP systolic 107–149; BP diastolic 53–83
[2017-08-03 01:09] LABS: AMMONIA 54 uMol/L (<32)
[2017-08-03] MEDS: GABAPENTIN 300MG CAPSULE PO SCH ×2 (06:22→15:53)
[2017-08-03] MEDS: FAMOTIDINE 20MG TABLET PO SCH ×2 (06:22→15:53)
[2017-08-03 07:44] LABS: HEMATOCRIT 37.6 % (36.0-48.0); HEMOGLOBIN 12.7 g/dL (12.0-16.0); MEAN CORPUSCULAR HEMOGLOBIN 30.8 pg (28.0-32.0); MEAN CORPUSCULAR VOLUME 91.1 fL (81.0-99.0); PLATELET 180 x1000/uL (130-400); RED BLOOD CELL COUNT 4.13 mill/uL (4.2-5.4); RED CELL DISTRIBUTION WIDTH 15.1 % (11.6-14.6)
[2017-08-03 08:39] LABS: CHLORIDE 103 mEq/L (98-107)
[2017-08-03] MEDS: DILTIAZEM HCL 240MG ER (24HR) PO SCH (09:00)
[2017-08-03] MEDS: OXYBUTYNIN CHLORIDE 5MG TABLET PO SCH (09:40)
[2017-08-03] MEDS: PHENYTOIN SODIUM EXTENDED 100MG CAPSULE PO SCH ×2 (09:40→15:53)
[2017-08-03] MEDS: SENNOSIDES 8.6MG TABLET PO SCH ×2 (09:41→15:53)
[2017-08-03] MEDS: ASPIRIN 81MG TABLET PO SCH (09:41)
[2017-08-03] MEDS: LACTULOSE 20G/30ML UDC PO SCH (09:41)
[2017-08-03] MEDS: HYDROCHLOROTHIAZIDE 25MG TABLET PO SCH (09:41)
[2017-08-03] MEDS: DIVALPROEX SODIUM 250MG DR TABLET PO SCH ×2 (09:41→15:54)
[2017-08-03] MEDS ORDERED: LACTULOSE 20G/30ML UDC PO SCH (17:00)
== END 2017-08-03 21:12 | DRG 292 ==
LOC: ER 16:23 → 6WST 23:49 → EDBEDREQTM 23:52 → EDBEDREQ 23:52 → ENRESERV 07-31 02:11 → 6WST 08-02 08:08
PROVIDERS: ADMIT Internal Medicine; ATTEND Internal Medicine
DX: I11.0 Hypertensive heart disease with heart failure (principal); E72.20 Disorder of urea cycle metabolism, unspecified; I50.33 Acute on chronic diastolic (congestive) heart failure; F03.90 Unspecified dementia, unspecified severity, without behavioral disturbance, psychotic disturbance, mood disturbance, and anxiety; G40.909 Epilepsy, unspecified, not intractable, without status epilepticus; F20.9 Schizophrenia, unspecified; E78.00 Pure hypercholesterolemia, unspecified; E78.5 Hyperlipidemia, unspecified; Z79.52 Long term (current) use of systemic steroids; Z88.8 Allergy status to other drugs, medicaments and biological substances; Z93.3 Colostomy status; Z79.899 Other long term (current) drug therapy
CPT/HCPCS: 36415; 70450; 71045; 74176; 80048; 80053; 80185; 80305; 81003; 82140; 82962; 83605; 83690; 83880; 84443; 84484; 85025; 85027; 85610; 93005; 97162; 97530; 99285; G0482; J1630; J3490; A4315